=== PATIENT | female | born 2000 | race Caucasian/White ===

== ENCOUNTER 2023-12-26 16:14 | Emergency (ER) | payer OTHER, SELFPAY ==
[2023-12-26 16:23] VITALS: BP 124/56
[2023-12-26 16:58] LABS: % Basophils 0.5 % (0-2); % Eosinophils 1.3 % (0-6); % Immature Granulocytes 0.2 % (0-0.5); % Lymphocytes 33.3 % (20.5-51.1); % Monocytes 4.6 % (1.7-9.3); % Neutrophils 60.1 % (42.2-75.2); Absolute Eosinophils 0.1 10^3/uL (0-0.7); Absolute Lymphocytes 2.9 10^3/uL (1.2-3.4); Absolute Monocytes 0.4 10^3/uL (0.1-0.6); Absolute Neutrophils 5.2 10^3/uL (1.4-6.5); Hematocrit 38.8 % (37.0-47.0); Hemoglobin 13.4 g/dL (12.0-16.0); Mean Corp Hgb Conc. 34.5 g/dL (33.0-37.0); Mean Corpuscular Hgb 32.6 pg (27.0-31.0); Mean Corpuscular Volume 94.4 fL (81.0-99.0); Mean Platelet Volume 9.5 fL (7.4-10.4); Nucleated Red Blood Cells % 0 %; Platelet Count 223 10^3/uL (130-400); Red Blood Cell Count 4.11 10^6/uL (4.20-5.40); White Blood Cell Count 8.6 10^3/uL (4.8-10.8)
--- NOTE | 2023-12-26 17:08 | ED.GENMED ---
History of Present Illness
<Deja Leblanc PA-C - Last Filed: 12/27/23 14:16>
General
Chief Complaint: Abdominal Pain
Source: patient
Time Seen by Provider: 12/26/23 16:50
History of Present Illness
History of Present Illness:
23yoF with a history of anxiety and depression presenting for evaluation of abdominal pain. Her pain initially started yesterday evening while she was in physics class. She had a stabbing pain in the epigastric region which radiates to her lower
abdomen. Her pain is now localized to the RLQ and has not gotten better over the past 24 hours. She has tried Gas-X without relief. She has had multiple bowel movements since her pain started which alternates between diarrhea and normal bowel
movements. Her main concern is that she has appendicitis. She denies any fevers, chills, vomiting, dysuria, vaginal bleeding, vaginal discharge. No previous abdominal surgeries. She has an IUD in place and LMP was about 3 weeks ago.
Past History
<Deja Leblanc PA-C - Last Filed: 12/27/23 14:16>
Past History
ED Past Medical History: None
ED Past Surgical History: None
Phy Exam
<Deja Leblanc PA-C - Last Filed: 12/27/23 14:16>
General Physical Exam
General Presentation: well appearing and no apparent distress
General age: appears stated age
General Skin: warm and dry
General Habitus: normal
General Mental: alert
ENT Exam
ENT Exam: normocephalic
Pulmonary Exam
Pulmonary Exam: no respiratory distress
Gastrointestinal Exam
Gastrointestinal Exam: soft, non distended and other (+Mild generalized tenderness which is worse in the RLQ. No guarding, rigidity, or rebound tenderness. )
Neurological Exam
Neurological Exam: alert
Ward Coma Scale
Eye Opening: Spontaneous
Verbal Response: Oriented
Motor Response: Obeys Commands
GCS Total Score: 15
Skin Exam
Skin Exam: normal color and warm/dry
Psychiatric Exam
Psychiatric Exam: normal mood/affect
<Veronica Kaur NP - Last Filed: 12/26/23 21:19>
Ward Coma Scale
GCS Total Score: 15
Course
<Deja Leblanc PA-C - Last Filed: 12/27/23 14:16>
Orders/Labs/Results
Orders:
Orders
12/26/23 16:31
CMP [Comprehensive Metabolic Panel] Urgent
Complete Blood Count/With Diff Urgent
HCG, Serum Qualitative Screen Urgent
Comment: ADD ON
12/26/23 16:51
Add On- LAB Urgent
Tests Added?: HCG
12/26/23 17:07
CT Abd/pel W Iv And Oral Contr Urgent
Comment:
Reason For Exam: RLQ pain
Iohexol [Omnipaque] See Protocol PO NOW STA
Abnormal Lab Results
12/26/23
16:31
RBC 4.11 L 10^6/uL
(4.20-5.40)
MCH 32.6 H pg
(27.0-31.0)
Glucose 156 H mg/dl
(70-99)
12/26/23 16:31
12/26/23 16:31
Vital Signs
Initial and Last Documented VS:
Initial Vital Signs
Temp Pulse Resp BP Pulse Ox
98.4 F 91 16 124/56 98
12/26/23 16:23 12/26/23 16:23 12/26/23 16:23 12/26/23 16:23 12/26/23 16:23
Last Documented Vital Signs
Temp Pulse Resp BP Pulse Ox
98.6 F 77 16 125/53 99
12/26/23 21:19 12/26/23 21:19 12/26/23 21:19 12/26/23 21:19 12/26/23 21:19
<Veronica Kaur NP - Last Filed: 12/26/23 21:19>
Orders/Labs/Results
Orders:
Orders
12/26/23 16:31
CMP [Comprehensive Metabolic Panel] Urgent
Complete Blood Count/With Diff Urgent
HCG, Serum Qualitative Screen Urgent
Comment: ADD ON
12/26/23 16:51
Add On- LAB Urgent
Tests Added?: HCG
12/26/23 17:07
CT Abd/pel W Iv And Oral Contr Urgent
Comment:
Reason For Exam: RLQ pain
Iohexol [Omnipaque] See Protocol PO NOW STA
Abnormal Lab Results
12/26/23
16:31
RBC 4.11 L 10^6/uL
(4.20-5.40)
MCH 32.6 H pg
(27.0-31.0)
Glucose 156 H mg/dl
(70-99)
12/26/23 16:31
12/26/23 16:31
Vital Signs
Initial and Last Documented VS:
Initial Vital Signs
Temp Pulse Resp BP Pulse Ox
98.4 F 91 16 124/56 98
12/26/23 16:23 12/26/23 16:23 12/26/23 16:23 12/26/23 16:23 12/26/23 16:23
Last Documented Vital Signs
Temp Pulse Resp BP Pulse Ox
98.6 F 77 16 125/53 99
12/26/23 21:19 12/26/23 21:19 12/26/23 21:19 12/26/23 21:19 12/26/23 21:19
<Deja Leblanc PA-C - Last Filed: 12/27/23 14:16>
MDM/Problems Addressed
Differential Diagnosis Includes:
23yoF here with abd pain x 1 day. Worse in the RLQ. Associated with diarrhea. No fevers. No urinary or vaginal symptoms. She is afebrile and hemodynamically stable. She is well appearing in no distress. No signs of peritonitis on abdominal exam.
Differential diagnosis includes but is not limited to: appendicitis, colitis, gastroenteritis, nonspecific abdominal pain
Initial ED plan: Check CBC, CMP, HCG, and CT abdomen. Patient declines analgesics.
<Veronica Kaur WASHCOAT WIPER - Last Filed: 12/26/23 21:19>
MDM/Problems Addressed
MDM/Problems Addressed:
CT abd/pelvis radiology report reviewed: IMPRESSION:
Small corpus luteal cyst in the right ovary with mild adjacent pelvic free fluid, which may be related to a recent cyst rupture.
Reviewed results with pt, copy of report given to her
Pt given UpToDate Pt information Beyond the Basics for ruptured ovarian cysts
She has a TELEGRAPH OFFICE MANAGER doctor in [place] where her parents live, she will be going in January to visit and will make appt for then
<Veronica Kaur WASHCOAT WIPER - Last Filed: 12/26/23 21:19>
*Critical Care Note
Total Time (30-74mins, 75-104mins- exclusive of procedures): Not Applicable
ED Attending Note
<Deja Leblanc PA-C - Last Filed: 12/27/23 14:16>
-
Portions of this chart may have been created with voice recognition software.� Occasional wrong word or��sound alike� substitutions may have occurred due to the inherent limitations of voice recognition software.
Discharge Plan
Departure
Patient Disposition: Home (Routine Discharge)
Date of Disposition: 12/26/23
Time of Disposition: 21:15
Patient with high blood pressure during this ER visit?: No
Condition: Good
Discharge Problem:
Rupture of cyst of right ovary
Instructions: Ovarian Cyst (DC)
Referrals:
Your, TELEGRAPH OFFICE MANAGER doctor [Other] - Next open appointment
UNKNOWN - PT DOES,NOT KNOW [Family Provider] -
Activity Restrictions/Additional Instructions:
As we discussed, you may want to call your TELEGRAPH OFFICE MANAGER doctor and make an appointment for when you go home in January.
Take copies of your results with you
Ibuprofen 600 mg, with food, every 6 hours as needed for pain.
Interventions
Interventions:
*Risk Screen - Suicide Last Done: 12/26/23 16:23
*General Assessment Last Done: 12/26/23 18:18
*Neglect/Abuse Screening Last Done: 12/26/23 16:23
*ED COVID-19 Vaccine History Last Done: 12/26/23 16:23
*Nursing Disposition Last Done: 12/26/23 21:19
MT-Xwviaq-Yxmhpohiah Assessment Last Done: 12/26/23 18:18
Discharge Date and Time
Discharge Date/Time: 12/26/23 21:25
Print Language: GREEK
[2023-12-26 17:18] LABS: HCG, Serum Qualitative Screen Negative
[2023-12-26 17:19] LABS: ALT (SGPT) 25 U/L (0-35); AST (SGOT) 33 U/L (14-36); Albumin 4.7 g/dl (3.5-5.0); Alkaline Phosphatase 70 U/L (38-126); Blood Urea Nitrogen 16 mg/dl (7-17); Calcium 9.7 mg/dl (8.4-10.2); Carbon Dioxide 24 mmol/L (22-30); Chloride 101 mmol/L (98-107); Glucose 156 mg/dl (70-99); Potassium 3.5 mmol/L (3.5-5.1); Sodium 140 mmol/L (135-145); Total Bilirubin 0.3 mg/dl (0.2-1.3); Total Protein 7.1 g/dl (6.3-8.2); eGFR > 60.00
[2023-12-26] MEDS: OMNIPAQUE 50 ML PO (17:29)
[2023-12-26 21:19] VITALS: BP 125/53
== END 2023-12-26 21:25 | disposition home or self-care (01) ==
LOC: EMR 16:14
PROVIDERS: EMERGENCY PHYSICIAN Emergency Medicine
DX: N83.201 Unspecified ovarian cyst, right side (principal)
CPT/HCPCS: 99284; 74177; 80053; 84703; 85025; Q9967